=== PATIENT | male | born 1960 | race African-American/Black ===

== ENCOUNTER 2020-04-06 21:56 | Emergency (ER) | payer BC ==
[2020-04-07] MEDS ORDERED: CIPROFLOXACIN HCL/DEXAMETH OTIC DROP 7.5 ML AU ONE (00:08)
[2020-04-07] MEDS ORDERED: DIPH/PERTUSS(ACELL)/TETANUS VAC/PF 0.5 ML SYR (>=10YO) IM ONE (00:09)
[2020-04-07 00:49] LABS: ABSOLUTE EOSINOPHILS # (AUTO) 0.1 10^3/uL (0.0-0.6); ABSOLUTE LYMPHOCYTES (AUTO) 1.5 10^3/uL (0.5-4.7); ABSOLUTE MONOCYTES (AUTO) 0.5 10^3/uL (0.1-1.4); ABSOLUTE NEUT (AUTO) 3.2 10^3/uL (1.7-8.2); BASOPHILS % (AUTO) 0.7 % (0-2); EOSINOPHILS % (AUTO) 2.2 % (0-6); HEMATOCRIT 39.6 % (37.9-51.0); HEMOGLOBIN 13.6 g/dL (13.5-17.0); LYMPHOCYTES % (AUTO) 28.2 % (13-45); MEAN CORPUSCULAR HEMOGLOBIN 26.8 pg (27.0-33.4); MEAN CORPUSCULAR HGB CONC 34.3 g/dL (32.0-36.0); MEAN CORPUSCULAR VOLUME 78 fl (80-97); MONOCYTES % (AUTO) 9.6 % (3-13); PLATELET COUNT 164 10^3/uL (150-450); RED BLOOD COUNT 5.06 10^6/uL (4.35-5.55); RED CELL DISTRIBUTION WIDTH 13.5 % (11.5-14.0); SEGMENTED NEUTROPHILS % (AUTO) 59.3 % (42-78); TOTAL CELLS COUNTED % (AUTO) 100 %; WHITE BLOOD COUNT 5.4 10^3/uL (4.0-10.5)
[2020-04-07 01:16] LABS: ALBUMIN 4.3 g/dL (3.5-5.0); ALKALINE PHOSPHATASE 117 U/L (38-126); ANION GAP 8 (5-19); ASPARTATE AMINO TRANSFERASE 39 U/L (17-59); BILIRUBIN,TOTAL 0.4 mg/dL (0.2-1.3); BLOOD UREA NITROGEN 18 mg/dL (7-20); CALCIUM 9.8 mg/dL (8.4-10.2); CARBON DIOXIDE 28 mmol/L (22-30); CHLORIDE 101 mmol/L (98-107); GLUCOSE 395 mg/dL (75-110); POTASSIUM 4.8 mmol/L (3.6-5.0); TOTAL PROTEIN 7.2 g/dL (6.3-8.2)
--- NOTE | 2020-04-07 01:23 | ER Document Report ---
HPI - HPI Time Seen by Provider: 04/06/20 23:59 Pain Level: 3 Notes: 59-year-old male patient presents emergency department chief complaint of bilateral ear pain. He states is been ongoing for the last 3 days. Patient is also wanting us to look at a burn to his right thigh. He states this happened a few days ago as well. He also reports earlier today he had tingling in his bilateral hands that resolved on its own. He states this was after working out in the sun. - EENT EENT: REPORTS: Ear Pain - bilateral rt mo Past Medical History - General Information source: Patient - Social History Smoking Status: Never Smoker Chew tobacco use (# tins/day): No Frequency of alcohol use: None Drug Abuse: None Family History: Reviewed & Not Pertinent - Past Medical History Cardiac Medical History: Reports: Hx Hypertension Endocrine Medical History: Reports: Hx Diabetes Mellitus Type 1 Past Surgical History: Reports: Hx Rectal Surgery - hemmorroid Vertical Provider Document - CONSTITUTIONAL Notes: PHYSICAL EXAMINATION: GENERAL: Well-appearing, well-nourished and in no acute distress. HEAD: Atraumatic, normocephalic. EYES: Pupils equal round and reactive to light, extraocular movements intact, sclera anicteric, conjunctiva are normal. ENT: Nares patent, oropharynx clear without exudates. Moist mucous membranes. Bilateral ear canals erythematous and swollen. Unable to visualize TMs. NECK: Normal range of motion, supple without lymphadenopathy LUNGS: Breath sounds clear to auscultation bilaterally and equal. No wheezes rales or rhonchi. HEART: Regular rate and rhythm without murmurs ABDOMEN: Soft, nontender, nondistended abdomen. No guarding, no rebound. No masses appreciated. Musculoskeletal: Normal range of motion, no pitting or edema. No cyanosis. NEUROLOGICAL: Cranial nerves grossly intact. Normal speech, normal gait. Normal sensory, motor exams PSYCH: Normal mood, normal affect. SKIN: Second-degree burn to anterior right thigh just superior to the knee. Course - Re-evaluation Re-evalutation: Labs were obtained due to patient's reports of hand cramping earlier while working in the sun. He overall appears well. His labs are reassuring. He has an [id number] burn cream that he has been applying to his burn on his leg this appears to be healing well. He will be sent home with Ciprodex for his bilateral otitis externa. - Vital Signs Vital signs: Temp Pulse Resp BP Pulse Ox 98.6 F 72 16 127/69 H 97 04/06/20 23:59 04/06/20 22:12 04/06/20 22:12 04/06/20 22:12 04/06/20 22:12 - Laboratory Result Diagrams: 04/07/20 00:38 04/07/20 00:38 Laboratory results interpreted by me: 04/07/20 04/07/20 00:38 00:38 MCV 78 L MCH 26.8 L Sodium 136.6 L Creatinine 1.29 H Est GFR (MDRD) Non-Af 57 L Glucose 395 H ALT 53 H Discharge - Discharge Clinical Impression: Mild dehydration Otitis externa Qualifiers: Otitis externa type: unspecified type Chronicity: acute Laterality: bilateral Qualified Code(s): H60.503 - Unspecified acute noninfective otitis externa, bilateral Burn of right thigh Qualifiers: Encounter type: initial encounter Burn degree: partial thickness (2nd degree) Qualified Code(s): T24.211A - Burn of second degree of right thigh, initial encounter Condition: Stable Disposition: HOME, SELF-CARE Instructions: [place] ([facility]), Use of Ear Drops ([facility]), Using Ear Drops with a Wick ([facility]), Otitis Externa ([facility]), Tetanus Immunization Given ([facility]) Additional Instructions: Your labs today were reassuring. They showed that you were only very mildly dehydrated. Please apply 3 drops of the Ciprodex eardrops to each ear twice daily. Take Tylenol and ibuprofen for pain. Continue to apply your burn cream to the burn on your leg. Keep this clean and dry. Follow-up with your primary care provider when you get home to [place]. Return to the emergency department anytime with any concerns. Prescriptions: Ibuprofen [Motrin 800 mg Tablet] 800 mg PO Q8H PRN #30 tab PRN Reason: Forms: Return to Work
[2020-04-07 05:43] VITALS: BP 125/79
== END 2020-04-07 01:48 | disposition home or self-care (01) ==
LOC: ER 21:56
DX: E86.0 Dehydration (principal); H60.503 Unspecified acute noninfective otitis externa, bilateral; T24.211A Burn of second degree of right thigh, initial encounter; H92.01 Otalgia, right ear; E10.9 Type 1 diabetes mellitus without complications; X58.XXXA Exposure to other specified factors, initial encounter; Z23 Encounter for immunization
CPT/HCPCS: 99283; 90471; 36415; 85025; 80053; 90715; J3490